=== PATIENT | male | born 1970 | race Asian ===

== ENCOUNTER 2020-07-31 10:43 | Emergency (ER) | payer BC ==
[~2020-07-31] VITALS: Ht 167.6 cm; Wt 97.5 kg
[2020-07-31 10:48] VITALS: BP_SYST 130
--- NOTE | 2020-07-31 10:53 | NUR ---
AMBULATED TO BED 2
--- NOTE | 2020-07-31 11:05 | NUR ---
PT CAME IN FROM HOME WITH C/O DIZZINESS STARTING 0700 WHEN HE WOKE UP. REPORTS HX OF HTN WHICH HE TAKES MEDICATION AT HOME, DOES NOT REMEMBER THE NAME OF THE MED. STATES HE HAD VERTIGO SEVERAL YEARS AGO AND THIS FEELS THE SAME. PT'S V/S STABLE, [id number]
--- NOTE | 2020-07-31 11:10 | NUR ---
ER DR. POWELL AT THE BEDSIDE EVALUATING PT
[2020-07-31] MEDS ORDERED: MECLIZINE HCL 25 MG TABLET (ANITVERT) PO ONE (11:15)
[2020-07-31] MEDS ORDERED: MECLIZINE HCL 25 MG TABLET (ANITVERT) ONE (11:22)
--- NOTE | 2020-07-31 11:24 | NUR ---
Patient transported to radiology via WC, accompanied by STAFF.
[2020-07-31 12:27] LABS: BASOPHILS # (AUTO) 0.1 K/uL (0.0-0.2); BASOPHILS % (AUTO) 0.9 % (0.0-2.0); HEMATOCRIT 44.4 % (36-54); HEMOGLOBIN 14.4 g/dL (14.0-18.0); LYMPHOCYTES # (AUTO) 0.9 K/uL (1.0-5.5); LYMPHOCYTES % (AUTO) 9.8 % (20.5-51.5); MEAN CORPUSCULAR HEMOGLOBIN 21 pg (27-31); MEAN CORPUSCULAR HGB CONC 33 % (32-36); MEAN CORPUSCULAR VOLUME 66 fL (79.0-98.0); MONOCYTES # (AUTO) 0.3 K/uL (0.0-1.0); MONOCYTES % (AUTO) 3.6 % (1.7-9.3); NEUTROPHILS # (AUTO) 8.3 K/uL (1.8-7.7); NEUTROPHILS % (AUTO) 85.7 % (40.0-70.0); PLATELET COUNT (AUTO) 378 K/uL (130-430); RED BLOOD CELL COUNT(AUTO) 6.78 MIL/uL (4.2-6.2); RED CELL DISTRIBUTION WIDTH 17.4 % (9.0-15.0); WHITE BLOOD COUNT (AUTO) 9.7 K/uL (4.8-10.8)
[2020-07-31 12:51] LABS: CALCIUM 8.9 mg/dL (8.4-11.0); CREATININE 0.95 mg/dL (0.55-1.30); POTASSIUM 4.1 mmol/L (3.5-5.1)
[2020-07-31] MEDS ORDERED: ONDANSETRON 4 MG ODT TAB PO ONE (13:15)
[2020-07-31 14:39] VITALS: BP_SYST 130
--- NOTE | 2020-07-31 14:40 | NUR ---
Patient given written and verbal discharge instructions and verbalizes understanding. ER MD discussed with patient the results and treatment provided. Patient in stable condition. ID arm band removed. Rx of ZOFRAN AND MECLIZINE given. Patient educated on pain management and to follow up with PMD. Pain Scale 0/10. Opportunity for questions provided and answered. Medication side effect fact sheet provided.
== END 2020-07-31 14:40 | disposition home or self-care (01) ==
LOC: SED 10:43
DX: R42 Dizziness and giddiness (principal); F41.9 Anxiety disorder, unspecified
CPT/HCPCS: 36415; 70450; 76376; 80048; 84484; 85025; 93005; 99285; J8597; Q0162

== ENCOUNTER 2023-05-09 13:20 | Inpatient (IN) | payer BC ==
[~2023-05-09] VITALS: Ht 160 cm; Wt 104.3 kg
[2023-05-09 13:35] VITALS: BP_SYST 173; PULSE 108; RESP 18; TEMP 98.3; O2SAT 93
[2023-05-09 14:16] LABS: BILIRUBIN,URINE NEGATIVE (NEGATIVE); BLOOD, URINE 2+ (NEGATIVE); CLARITY/URINE Turbid (CLEAR); COLOR,URINE RED (YELLOW); GLUCOSE,URINE NEGATIVE (NEGATIVE); KETONES,URINE 2+ (NEGATIVE); LEUKOCYTE ESTERASE ,URINE 1+ (NEGATIVE); NITRITE, URINE NEGATIVE (NEGATIVE); PROTEIN URINE 3+ (NEGATIVE); UROBILINOGEN,URINE 0.2 (0.2-1.0)
[2023-05-09 14:25] LABS: BACTERIA,URINE RARE /HPF (None Seen); RBC,URINE >100 /HPF (0-3)
[2023-05-09] MEDS ORDERED: cefTRIAXone 1 GM IVPB PREMIX 50 ML IV ONE ×3 (17:00→21:00)
[2023-05-09 18:06] LABS: BASOPHILS # (AUTO) 0.1 K/uL (0.0-0.2); BASOPHILS % (AUTO) 0.4 % (0.0-2.0); EOSINOPHILS % (AUTO) 0.1 % (0.0-4.0); HEMATOCRIT 47.1 % (36-54); HEMOGLOBIN 15.1 g/dL (14.0-18.0); LYMPHOCYTES # (AUTO) 1.5 K/uL (1.0-5.5); MEAN CORPUSCULAR HEMOGLOBIN 21 pg (27-31); MEAN CORPUSCULAR HGB CONC 32 % (32-36); MEAN CORPUSCULAR VOLUME 65 fL (79.0-98.0); MONOCYTES # (AUTO) 1.3 K/uL (0.0-1.0); MONOCYTES % (AUTO) 7.3 % (1.7-9.3); NEUTROPHILS # (AUTO) 14.4 K/uL (1.8-7.7); NEUTROPHILS % (AUTO) 83.2 % (40.0-70.0); PLATELET COUNT (AUTO) 374 K/uL (130-430); RED BLOOD CELL COUNT(AUTO) 7.21 MIL/uL (4.2-6.2); RED CELL DISTRIBUTION WIDTH 17.1 % (9.0-15.0); WHITE BLOOD COUNT (AUTO) 17.3 K/uL (4.8-10.8)
[2023-05-09 18:21] LABS: ANISOCYTOSIS 1+; STOMATOCYTES FEW; TARGET CELLS FEW
[2023-05-09 18:59] LABS: POTASSIUM 4.1 mmol/L (3.5-5.1)
[2023-05-09] MEDS ORDERED: ZOLPIDEM TARTRATE 5 MG TABLET PO PRN (19:15)
[2023-05-09] MEDS ORDERED: MUPIROCIN 2% TOPICAL OINTMENT 22 GM NS PRN (19:15)
[2023-05-09] MEDS ORDERED: DOCUSATE SODIUM 100 MG CAPSULE PO PRN (19:15)
[2023-05-09] MEDS ORDERED: MAGNESIUM SULFATE 50 ML IV PRN (19:15)
[2023-05-09] MEDS ORDERED: LORazepam 2 MG/ML VIAL IVP PRN (19:15)
[2023-05-09] MEDS ORDERED: MORPHINE 2 MG/ML INJ. SYRINGE IVP PRN ×2 (19:15)
[2023-05-09] MEDS ORDERED: ONDANSETRON HCL 4 MG/2 ML VIAL IVP PRN (19:15)
[2023-05-09] MEDS ORDERED: POTASSIUM CHLORIDE 20 MEQ TAB.PRT.SR PO PRN (19:15)
[2023-05-09] MEDS ORDERED: ACETAMINOPHEN 325 MG TABLET PO PRN ×2 (19:15→20:30)
[2023-05-09] MEDS ORDERED: AMLO10TA88 PO (19:17)
[2023-05-09] MEDS ORDERED: LOSA50TA28 PO (19:17)
[2023-05-09] MEDS ORDERED: METO-544 PO (19:17)
[2023-05-09] MEDS ORDERED: cloNIDine HCL 0.2 MG TABLET PO PRN (19:30)
[2023-05-09] MEDS ORDERED: METOPROLOL TARTRATE 25 MG TABLET PO ONE ×2 (19:45→20:00)
[2023-05-09] MEDS: NACL 0.9% 1,000 ML IV SCH (21:14)
[2023-05-09 21:36] LABS: PROTHROMBIN TIME 10.4 SECS (9.5-12.5)
[2023-05-09 22:45] VITALS: O2SAT 96
[2023-05-09] MEDS: HEPARIN SODIUM,PORCINE 5,000 UNITS/ML VIAL SUBCUT SCH (22:55)
[2023-05-09 23:00] VITALS: BP_SYST 137; PULSE 105; RESP 16; TEMP 98.9
[2023-05-10 00:59] VITALS: BP_SYST 128; PULSE 96; RESP 18; TEMP 99.1; O2SAT 95
[2023-05-10] MEDS: NACL 0.9% 1,000 ML IV SCH ×3 (06:06→21:11)
[2023-05-10 06:50] LABS: BASOPHILS # (AUTO) 0.1 K/uL (0.0-0.2); BASOPHILS % (AUTO) 0.3 % (0.0-2.0); EOSINOPHILS % (AUTO) 0.1 % (0.0-4.0); HEMOGLOBIN 13.5 g/dL (14.0-18.0); LYMPHOCYTES # (AUTO) 1.9 K/uL (1.0-5.5); LYMPHOCYTES % (AUTO) 12.3 % (20.5-51.5); MEAN CORPUSCULAR HEMOGLOBIN 21 pg (27-31); MEAN CORPUSCULAR HGB CONC 31 % (32-36); MEAN CORPUSCULAR VOLUME 66 fL (79.0-98.0); MONOCYTES # (AUTO) 1.4 K/uL (0.0-1.0); MONOCYTES % (AUTO) 9.2 % (1.7-9.3); NEUTROPHILS # (AUTO) 12.3 K/uL (1.8-7.7); NEUTROPHILS % (AUTO) 78.1 % (40.0-70.0); PLATELET COUNT (AUTO) 336 K/uL (130-430); RED BLOOD CELL COUNT(AUTO) 6.56 MIL/uL (4.2-6.2); RED CELL DISTRIBUTION WIDTH 17.3 % (9.0-15.0); WHITE BLOOD COUNT (AUTO) 15.7 K/uL (4.8-10.8)
[2023-05-10 07:02] LABS: CALCIUM 8.5 mg/dL (8.4-11.0); CREATININE 0.91 mg/dL (0.55-1.30); POTASSIUM 3.6 mmol/L (3.5-5.1)
[2023-05-10 08:00] VITALS: BP_SYST 136; PULSE 123; RESP 16; TEMP 99.1; O2SAT 98
[2023-05-10] MEDS ORDERED: METOPROLOL TARTRATE 25 MG TABLET PO SCH (09:00)
[2023-05-10] MEDS: HEPARIN SODIUM,PORCINE 5,000 UNITS/ML VIAL SUBCUT SCH ×2 (10:13→21:12)
[2023-05-10] MEDS ORDERED: METOPROLOL SUCCINATE 50 MG TAB.SR.24H (TOPROL XL) PO ONE (10:15)
[2023-05-10] MEDS ORDERED: LOSARTAN POTASSIUM 50 MG TABLET (COZAAR) PO ONE (10:15)
[2023-05-10] MEDS ORDERED: amLODIPine BESYLATE 10 MG TABLET PO ONE (10:15)
[2023-05-10 18:52] VITALS: BP_SYST 125; PULSE 102; RESP 16; TEMP 98.7; O2SAT 96
[2023-05-10 20:00] VITALS: BP_SYST 138; PULSE 117; RESP 18; TEMP 99.2; O2SAT 93
[2023-05-10] MEDS ORDERED: cefTRIAXone 1 GM in D5W 50 ML IV SCH (20:00)
[2023-05-11] VITALS: BP_SYST 124; PULSE 103; RESP 17; TEMP 99; O2SAT 94
[2023-05-11 03:12] VITALS: O2SAT 94
[2023-05-11 06:26] LABS: BASOPHILS # (AUTO) 0.1 K/uL (0.0-0.2); BASOPHILS % (AUTO) 0.8 % (0.0-2.0); EOSINOPHILS # (AUTO) 0.1 K/uL (0.0-0.4); EOSINOPHILS % (AUTO) 0.5 % (0.0-4.0); HEMATOCRIT 40.6 % (36-54); HEMOGLOBIN 12.8 g/dL (14.0-18.0); LYMPHOCYTES # (AUTO) 2.4 K/uL (1.0-5.5); LYMPHOCYTES % (AUTO) 16.2 % (20.5-51.5); MEAN CORPUSCULAR HEMOGLOBIN 21 pg (27-31); MEAN CORPUSCULAR HGB CONC 32 % (32-36); MEAN CORPUSCULAR VOLUME 65 fL (79.0-98.0); MONOCYTES # (AUTO) 1.5 K/uL (0.0-1.0); MONOCYTES % (AUTO) 10.4 % (1.7-9.3); NEUTROPHILS # (AUTO) 10.6 K/uL (1.8-7.7); NEUTROPHILS % (AUTO) 72.1 % (40.0-70.0); PLATELET COUNT (AUTO) 293 K/uL (130-430); RED BLOOD CELL COUNT(AUTO) 6.21 MIL/uL (4.2-6.2); RED CELL DISTRIBUTION WIDTH 17.3 % (9.0-15.0); WHITE BLOOD COUNT (AUTO) 14.7 K/uL (4.8-10.8)
[2023-05-11 06:28] LABS: CALCIUM 8.1 mg/dL (8.4-11.0); CREATININE 0.83 mg/dL (0.55-1.30); POTASSIUM 3.6 mmol/L (3.5-5.1)
[2023-05-11] MEDS: NACL 0.9% 1,000 ML IV SCH (06:44)
[2023-05-11] MEDS ORDERED: SULF1TAB48 PO (08:08)
[2023-05-11 08:40] VITALS: BP_SYST 134; PULSE 96; RESP 18; TEMP 98.6; O2SAT 96
[2023-05-11] MEDS ORDERED: LOSARTAN POTASSIUM 50 MG TABLET (COZAAR) PO SCH (09:00)
[2023-05-11] MEDS ORDERED: amLODIPine BESYLATE 10 MG TABLET PO SCH (09:00)
[2023-05-11] MEDS: HEPARIN SODIUM,PORCINE 5,000 UNITS/ML VIAL SUBCUT SCH (09:00)
[2023-05-11] MEDS ORDERED: METOPROLOL SUCCINATE 50 MG TAB.SR.24H (TOPROL XL) PO SCH (09:00)
[2023-05-11 10:12] VITALS: BP_SYST 134; PULSE 96; RESP 18; TEMP 98.6; O2SAT 96
[2023-05-11 10:30] VITALS: BP_SYST 144; PULSE 89; RESP 18; TEMP 98.2; O2SAT 96
== END 2023-05-11 11:25 | disposition home or self-care (01) | DRG 872 ==
LOC: SED 13:20 → SMU 18:50
PROVIDERS: ADMIT General Practice; ATTEND General Practice
DX: A41.9 Sepsis, unspecified organism (principal); N12 Tubulo-interstitial nephritis, not specified as acute or chronic; Z68.41 Body mass index [BMI] 40.0-44.9, adult; I10 Essential (primary) hypertension; E66.9 Obesity, unspecified
CPT/HCPCS: 36415; 76376; 80048; 81000; 83037; 83605; 83735; 85025; 85610-TC; 85730-TC; 87040; 87086; 96361; 96365; 99285; J0696; J1644; J7030; J7060